=== PATIENT | male | born 1990 | race Caucasian/White ===

== ENCOUNTER 2019-11-23 13:28 | Emergency (ER) | payer BC ==
[~2019-11-23] VITALS: Ht 172.7 cm; Wt 110.2 kg
[2019-11-23 16:13] LABS: BASOPHILS % 0.6 % (0.0-2.0); EOSINOPHILS % 1.6 % (0.0-5.0); HEMATOCRIT. 48.2 % (42.0-52.0); HEMOGLOBIN. 16.8 g/dL (14.0-18.0); MEAN CORPUSCULAR VOLUME 86.3 fL (80.0-94.0); MEAN PLATELET VOLUME 8.7 fl (7.4-10.4); MONOCYTES % 4.8 % (2.0-8.0); PLATELET 286 x1000/uL (130-400); RED BLOOD CELL COUNT 5.59 mill/uL (4.7-6.1); RED CELL DISTRIBUTION WIDTH 12.6 % (11.6-14.6)
[2019-11-23 16:15] LABS: INR 0.9; PROTHROMBIN TIME 10.1 sec (9.6-11.0)
[2019-11-23 16:15] LABS: COLOR URINE YELLOW (YELLOW); KETONES URINE NEGATIVE (NEGATIVE); LEUKOCYTE ESTERASE URINE NEGATIVE (NEGATIVE); NITRITE URINE NEGATIVE (NEGATIVE); OCCULT BLOOD URINE NEGATIVE (NEGATIVE); PROTEIN URINE NEGATIVE (NEGATIVE); SPECIFIC GRAVITY URINE 1.038 (1.005-1.030); UROBILINOGEN URINE 0.2 E.U./dL (0.2-1.0)
[2019-11-23 16:16] LABS: CHLORIDE 102 mEq/L (98-107)
[2019-11-23 16:29] LABS: CLARITY URINE BLOODY (CLEAR)
[2019-11-23] MEDS ORDERED: IOHEXOL-300 100 ML BOTTLE ONE (22:02)
[2019-11-23 22:28] VITALS: BP 127/74
== END 2019-11-23 22:29 | disposition home or self-care (01) ==
LOC: ER 13:28
DX: R10.11 Right upper quadrant pain (principal); E11.9 Type 2 diabetes mellitus without complications; R31.9 Hematuria, unspecified; J45.909 Unspecified asthma, uncomplicated
CPT/HCPCS: 36415; 74177; 76705; 80053; 81003; 83690; 85025; 85610; 99285; Q9967